=== PATIENT | male | born 1970 | race Caucasian/White ===

== ENCOUNTER 2017-03-30 14:47 | Emergency (ER) | payer OTHER ==
[~2017-03-30] VITALS: Ht 182.9 cm; Wt 85.0 kg
[2017-03-30 14:55] VITALS: BP 160/84; PULSE 102; RESP 20; TEMP 98.9; O2SAT 96
[2017-03-30 16:55] VITALS: BP 130/82; PULSE 109; RESP 18; TEMP 98.1; O2SAT 96
[2017-03-30 18:18] LABS: AUTOMATED NEUTROPHIL # 3.8 TH/MM3 (1.8-7.7); BASOPHIL % 0.6 % (0.0-2.0); EOSINOPHIL # 0.5 TH/MM3 (0-0.4); EOSINOPHIL % 9.5 % (0.0-4.0); HEMATOCRIT 37.5 % (39.0-51.0); HEMO FLAGS DIFF FINAL; LYMPH % 15.2 % (9.0-44.0); LYMPHOCYTE # 0.8 TH/MM3 (1.0-4.8); MEAN CELL VOLUME 85.1 FL (80.0-100.0); MEAN CORPUSCULAR HGB CONC 34.1 % (32.0-36.0); MONO % 4.6 % (0.0-8.0); NEUT % 70.1 % (16.0-70.0); PLATELET COUNT 161 TH/MM3 (150-450); RED CELL DISTRIBUTION WIDTH 15.5 % (11.6-17.2); WHITE BLOOD COUNT 5.4 TH/MM3 (4.0-11.0)
[2017-03-30 18:33] LABS: ALT (GPT) 28 U/L (12-78); ANION GAP 7 MEQ/L (5-15); AST (GOT) 16 U/L (15-37); BICARBONATE 28.3 MEQ/L (21.0-32.0); BLOOD UREA NITROGEN 14 MG/DL (7-18); CHLORIDE 100 MEQ/L (98-107); GLOMERULAR FILTRATION RATE 87 ML/MIN (>89); POTASSIUM 3.1 MEQ/L (3.5-5.1); SODIUM (NA) 135 MEQ/L (136-145)
[2017-03-30 18:35] LABS: ALKALINE PHOSPHATASE 97 U/L (45-117); APTT (PATIENT) 29.8 SEC (24.3-30.1); PROTHROMBIN TIME - PATIENT 10.7 SEC (9.8-11.6); TOTAL BILIRUBIN ADULT 0.6 MG/DL (0.2-1.0)
--- NOTE | 2017-03-30 18:42 | PD ---
HPI . Painful rash Chief Complaint: Skin Problem Time Seen by Provider: 17:04 Travel History International Travel<30 days: No Contact w/Intl Traveler<30days: No Traveled to known affect area: No History of Present Illness HPI This patient presents with a painful rash. Onset was 2 days ago. It has been getting progressively worse. He describes the pain as a burning sensation and rates it 7/10. Pain is exacerbated by palpation and by standing. No relieving factor. The patient denies any systemic complaints such as fever or nausea. He is unable to pinpoint the etiology of the rash. He states that he was seen at an outside facility last night for same and was told that he had a bacterial infection in his skin. He states that he and his provider exchanged a few words and he ended up leaving the facility without treatment. 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) Allergies-Medications (Allergen,Severity, Reaction): Coded Allergies: No Known Allergies (Verified Allergy, Unknown, 03/30/17) Unable to Assess (Unverified Allergy, Unknown, 01/31/17) Reported Meds & Prescriptions Reported Meds & Active Scripts Active Prednisone (48) 10 mg tab Dose Pack (Prednisone) 10 Mg Dspk 10 Mg PO DIRECTED Review of Systems Except as stated in HPI: all other systems reviewed are Neg General / Constitutional: No: Fever, Chills Gastrointestinal: No: Nausea, Vomiting Skin: Positive Rash, Positive Change in Pigmentation, Positive Other (burning pain in his lower extremities) Physical Exam Narrative Vital Signs Date Time Temp Pulse Resp B/P (MAP) Pulse Ox O2 Delivery O2 Flow Rate FiO2 03/30/17 16:55 109 18 03/30/17 16:55 98.1 109 18 130/82 (98) 96 Room Air 03/30/17 14:55 98.9 102 20 160/84 (109) 96 Room Air GENERAL: Awake and alert and in no acute distress. SKIN: The skin of the lower extremities has an almost confluent erythematous rash. It is a bit raised. It is diffusely tender. There is no weeping or drainage. The upper legs, arms and trunks have nonblanching petechial lesions. They are flat. HEAD: Normocephalic/atraumatic. EYES: Pupils are equal. Extraocular movements are intact. NECK: Full range of motion with no apparent pain. CARDIOVASCULAR: Sinus tachycardia at about 100-110. RESPIRATORY: Nonlabored respirations. MUSCULOSKELETAL: Atraumatic. NEUROLOGICAL: Nonfocal. PSYCHIATRIC: Appropriate mood and affect. Data Data Last Documented VS Vital Signs Date Time Temp Pulse Resp B/P (MAP) Pulse Ox O2 Delivery O2 Flow Rate FiO2 03/30/17 19:12 101 20 136/67 (90) 98 Room Air 03/30/17 16:55 98.1 Orders Orders Complete Blood Count With Diff (03/30/17 17:10) Comprehensive Metabolic Panel (03/30/17 17:10) Prothrombin Time / Inr (Pt) (03/30/17 17:10) Act Partial Throm Time (Ptt) (03/30/17 17:10) Lactic Acid Sepsis Protocol (03/30/17 17:10) Blood Culture (03/30/17 17:10) Iv Access Insert/Monitor (03/30/17 17:10) Creatine Kinase (Cpk) (03/30/17 17:13) Westergren Sedimentation Rate (03/30/17 18:37) Lactic Acid (03/30/17 18:37) Sodium Chlor 0.9% 1000 Ml Inj (Ns 1000 M (03/30/17 18:45) Cefazolin 2 Gm Premix (Ancef 2 Gm Premix (03/30/17 18:45) Methylprednisolone So Succ Inj (Solumedr (03/30/17 19:30) Potassium Chloride (Kcl) (03/30/17 20:00) Magnesium Oxide (Mag-Ox) (03/30/17 20:00) Labs Laboratory Tests Test 03/30/17 17:35 03/30/17 21:15 White Blood Count 5.4 TH/MM3 Red Blood Count 4.40 MIL/MM3 Hemoglobin 12.8 GM/DL Hematocrit 37.5 % Mean Corpuscular Volume 85.1 FL Mean Corpuscular Hemoglobin 29.0 PG Mean Corpuscular Hemoglobin Concent 34.1 % Red Cell Distribution Width 15.5 % Platelet Count 161 TH/MM3 Mean Platelet Volume 7.3 FL Neutrophils (%) (Auto) 70.1 % Lymphocytes (%) (Auto) 15.2 % Monocytes (%) (Auto) 4.6 % Eosinophils (%) (Auto) 9.5 % Basophils (%) (Auto) 0.6 % Neutrophils # (Auto) 3.8 TH/MM3 Lymphocytes # (Auto) 0.8 TH/MM3 Monocytes # (Auto) 0.3 TH/MM3 Eosinophils # (Auto) 0.5 TH/MM3 Basophils # (Auto) 0.0 TH/MM3 CBC Comment DIFF FINAL Differential Comment Erythrocyte Sedimentation Rate 23 mm/hr Prothrombin Time 10.7 SEC Prothromb Time International Ratio 1.0 RATIO Activated Partial Thromboplast Time 29.8 SEC Blood Urea Nitrogen 14 MG/DL Creatinine 0.93 MG/DL Random Glucose 94 MG/DL Total Protein 7.3 GM/DL Albumin 3.3 GM/DL Calcium Level 8.0 MG/DL Alkaline Phosphatase 97 U/L Aspartate Amino Transf (AST/SGOT) 16 U/L Alanine Aminotransferase (ALT/SGPT) 28 U/L Total Bilirubin 0.6 MG/DL Sodium Level 135 MEQ/L Potassium Level 3.1 MEQ/L Chloride Level 100 MEQ/L Carbon Dioxide Level 28.3 MEQ/L Anion Gap 7 MEQ/L Estimat Glomerular Filtration Rate 87 ML/MIN Lactic Acid Level 2.6 mmol/L 1.5 mmol/L MDM Medical Decision Making Medical Screen Exam Complete: Yes Emergency Medical Condition: Yes Medical Record Reviewed: Yes (I have requested the medical records from the outside facility.) Differential Diagnosis The differential diagnosis of the skin rash includes but is not limited to allergic urticaria, scabies, insect bites, contact dermatitis Narrative Course This patient presents with a burning rash which is most prominent on his lower legs. He has a nonblanching petechial rash elsewhere on his body. He does not have any associated systemic symptoms. CBC & BMP Diagram 03/30/17 17:35 Total Protein 7.3, Albumin 3.3 L, Calcium Level 8.0 L, Alkaline Phosphatase 97, Aspartate Amino Transf (AST/SGOT) 16, Alanine Aminotransferase (ALT/SGPT) 28, Total Bilirubin 0.6 Coags are normal. Lactic acid is 2.6. Repeat lactic acid is 1.5. The patient will be treated for presumed vasculitis. He has been given Solu- Medrol 125 mg IV here. He will be discharged on a 12 day prednisone taper. His potassium will be replaced here. I will presume low magnesium as well and given him dose of mag ox. Diagnosis Primary Impression: Vasculitis Additional Impression: Hypokalemia Referrals: [facility] Additional Instructions: Prednisone as directed. Follow-up with [facility] if not better by Sunday. Scripts Prednisone (48) 10 mg tab Dose Pack (Prednisone (48) 10 mg tab Dose Pack) 10 Mg Dspk 10 MG PO DIRECTED for Inflammation, #1 DSPK 0 Refills Prov: Fanny Rios MD 03/30/17 Disposition: DISCHARGE HOME Condition: Stable Fanny Rios MD Mar 30, 2017 18:42
[2017-03-30] MEDS ORDERED: ceFAZolin 2 GM PREMIX 50 ML IV ONE (18:45)
[2017-03-30] MEDS ORDERED: SODIUM CHLOR 0.9% 1000 ML INJ 1,000 ML IV ONE (18:45)
[2017-03-30 19:12] VITALS: BP 136/67; PULSE 101; RESP 20; O2SAT 98
[2017-03-30] MEDS ORDERED: methylPREDNISolone SOD SUCC 125 MG/2 ML VIAL IV PUSH ONE (19:30)
[2017-03-30] MEDS ORDERED: PRED10PA2 PO ×2 (19:53→23:35)
[2017-03-30] MEDS ORDERED: MAGNESIUM OXIDE 400 MG TAB PO ONE (20:00)
[2017-03-30] MEDS ORDERED: POTASSIUM CHLORIDE 20 MEQ CONTROLLED RELEASE TAB PO ONE (20:00)
[2017-03-30 20:03] LABS: LACTIC ACID GHOST NOT REPORTABLE
[2017-03-30 22:57] VITALS: BP 130/74
== END 2017-03-30 22:58 | disposition home or self-care (01) ==
LOC: NEPD 14:47
DX: I77.6 Arteritis, unspecified (principal); E87.6 Hypokalemia
CPT/HCPCS: 80053; 83605; 85025; 85610; 85652; 85730; 87040; 96365; 96375; 99284; J0690; J2930; J7030